=== PATIENT | female | born 1960 | race African-American/Black ===

== ENCOUNTER 2017-07-23 15:59 | Emergency (ER) | payer OTHER ==
[2017-07-23 16:05] VITALS: TEMP 98; BMI 25.7
--- NOTE | 2017-07-23 16:06 | PDOC ---
Rapid Medical Evaluation Time Seen by Provider: 07/23/17 16:00 Medical Evaluation: Allergies Allergy/AdvReac Type Severity Reaction Status Date / Time aspirin Allergy Verified 11/26/13 10:20 pseudoephedrine Allergy Verified 11/26/13 10:20 07/23/17 16:00 I have performed a brief in-person evaluation of this patient. The patient presents with a chief complaint of: hx of HTN. Wilson headache today 8 /10 pain. MD Rich gave norvasc "in case" of high BP, BP at home 140/100, took norvasc at 2:40 pm before work, at work BP was 160/113, denies SOB or chest pain Pertinent physical exam findings: well appearing, BP 157/97 I have ordered the following: labs, EKG The patient will proceed to the ED for further evaluation. Discharge Disposition - Diagnosis Hypertension - Referrals - Patient Instructions - Post Discharge Activity
[2017-07-23 16:33] LABS: BASO % 0.6 % (0-2.0); EOS % 4.8 % (0-4.5); HEMATOCRIT 41.7 % (32.4-45.2); HEMOGLOBIN 13.6 GM/dL (10.7-15.3); LYMPH % 28.1 % (8-40); MCHC 32.7 g/dl (32.0-36.0); MEAN CELL VOLUME 88.8 fl (80-96); MEAN PLT VOLUME 8.9 fl (7.5-11.1); NEUT % 56.5 % (42.8-82.8); PLATELET COUNT 256 K/MM3 (134-434)
[2017-07-23 16:46] LABS: INR 1.02 (0.82-1.09); PROTHROMBIN TIME (PATIENT) 11.5 SEC (9.98-11.88)
[2017-07-23 16:59] LABS: ALBUMIN 3.9 g/dl (3.4-5.0); ANION GAP 7 (8-16); BLOOD UREA NITROGEN 15 mg/dL (7-18); CALCIUM 8.6 mg/dL (8.5-10.1); CHLORIDE 108 mmol/L (98-107); CO2 27 mmol/L (21-32); CREATININE 0.7 mg/dL (0.55-1.02); GLUCOSE,RANDOM 130 mg/dL (74-106); POTASSIUM 4.1 mmol/L (3.5-5.1); SGOT/AST 15 U/L (15-37); SGPT/ALT 21 U/L (12-78); SODIUM 142 mmol/L (136-145)
[2017-07-23 17:02] LABS: ALK PHOS 108 U/L (45-117); BILIRUBIN,TOTAL 0.4 mg/dL (0.2-1.0); TOT PROT 7.7 g/dl (6.4-8.2)
[2017-07-23] MEDS ORDERED: ACETAMINOPHEN 325 MG TABLET (FP) ONE (17:51)
--- NOTE | 2017-07-23 17:53 | PDOC ---
History of Present Illness - History of Present Illness Initial Comments: 07/23/17 18:04 Patient is a 57 F with PMHx of HTN, who presents today for high blood pressure. Patient states that she found out her cousin earlier this morning. She took her Norvasc medication and went to her job at the [employer]. She then had her blood pressure taken at work and measured 160/110. She denies taking any Tylenol or other medication for her headache. She denies chest pain, shortness of breath, visual changes, nausea, vomit, focal neuro deficits. <Mackenzie Gibbons - Last Filed: 07/23/17 18:04> <Antonette Thornton - Last Filed: 07/23/17 18:07> - General Chief Complaint: Blood Pressure Problem Stated Complaint: BLOOD PRESSURE PROBLEM Time Seen by Provider: 07/23/17 16:00 Past History <Mackenzie Gibbons - Last Filed: 07/23/17 18:04> - Past Medical History COPD: No HTN: Yes Hypercholesterolemia: Yes Other medical history: R.A - Surgical History Abdominal Surgery: Yes (STOMACH) - Suicide/Smoking/Psychosocial Hx Smoking Status: No Smoking History: Never smoked Have you smoked in the past 12 months: No Number of Cigarettes Smoked Daily: 0 Information on smoking cessation initiated: No Hx Alcohol Use: No Drug/Substance Use Hx: No Substance Use Type: None <Antonette Thornton - Last Filed: 07/23/17 18:07> - Past Medical History Allergies/Adverse Reactions: Allergies Allergy/AdvReac Type Severity Reaction Status Date / Time aspirin Allergy Verified 07/23/17 16:00 pseudoephedrine Allergy Verified 07/23/17 16:00 Home Medications: Ambulatory Orders Folic Acid - 1 mg PO DAILY 11/26/13 Lisinopril [Prinivil] 10 mg PO DAILY 11/26/13 Tramadol HCl 50 mg PO TID #20 tablet 11/26/13 Review of Systems - Review of Systems Comments:: 07/23/17 18:04 CONSTITUTIONAL: Absent: fever, no chills, no fatigue EYES: Absent: visual changes ENT: Absent: ear pain, no sore throat CARDIOVASCULAR: Absent: chest pain, no palpitations RESPIRATORY: Absent: cough, no SOB GI: Absent: abdominal pain, no nausea, no vomiting, no constipation, no diarrhea GENITOURINARY: Absent: dysuria, no frequency, no hematuria MUSCULOSKELETAL: Absent: back pain, no arthralgia, no myalgia SKIN: Absent: rash NEURO: Present: headache <ShaiMackenzie - Last Filed: 07/23/17 18:04> *Physical Exam - Vital Signs Last Vital Signs Temp Pulse Resp BP Pulse Ox 98.0 F 70 20 121/100 100 07/23/17 16:01 07/23/17 17:55 07/23/17 17:55 07/23/17 17:55 07/23/17 17:55 - Physical Exam Comments: 07/23/17 18:05 GENERAL: Well-appearing, well-nourished. No apparent distress. HEENT: Normocephalic, atraumatic. PERRL, EOM intact. CARDIOVASCULAR: Normal S1, S2. Regular rate and rhythm. PULMONARY: Clear to auscultation bilaterally. ABDOMEN: Soft, non-distended, non-tender. EXTREMITIES: Normal ROM in all four extremities. No gross deformities. SKIN: Warm, dry. No rash NEUROLOGICAL: No focal neurological deficits. <ShaiMackenzie - Last Filed: 07/23/17 18:04> - Vital Signs Last Vital Signs Temp Pulse Resp BP Pulse Ox 98.0 F 64 18 157/97 100 07/23/17 16:01 07/23/17 16:01 07/23/17 16:01 07/23/17 16:01 07/23/17 16:01 <Antonette Thornton - Last Filed: 07/23/17 18:07> ED Treatment Course - LABORATORY CBC & Chemistry Diagram: 07/23/17 16:21 07/23/17 16:22 - ADDITIONAL ORDERS Additional order review: Laboratory Results 07/23/17 07/23/17 07/23/17 16:22 16:22 16:21 PT with INR 11.50 INR 1.02 Sodium 142 Potassium 4.1 Chloride 108 H Carbon Dioxide 27 Anion Gap 7 L BUN 15 Creatinine 0.7 Creat Clearance w eGFR > 60 Random Glucose 130 H Calcium 8.6 Magnesium 2.2 Total Bilirubin 0.4 D AST 15 ALT 21 Alkaline Phosphatase 108 Creatine Kinase 229 H Creatine Kinase Index 0.8 CK-MB (CK-2) 2.001 Troponin I < 0.02 Total Protein 7.7 Albumin 3.9 07/23/17 16:21 RBC 4.70 MCV 88.8 MCHC 32.7 RDW 15.0 MPV 8.9 Neutrophils % 56.5 Lymphocytes % 28.1 Monocytes % 10.0 Eosinophils % 4.8 H Basophils % 0.6 - Medications Given in the ED: ED Medications Discontinued Medications Generic Name Dose Route Start Last Admin Trade Name Camilo PRN Reason Stop Dose Admin Acetaminophen 975 mg 07/23/17 17:55 07/23/17 17:56 Tylenol - PO 07/23/17 17:56 975 mg ONCE STA Administration <Mackenzie Gibbons - Last Filed: 07/23/17 18:04> - LABORATORY CBC & Chemistry Diagram: 07/23/17 16:21 07/23/17 16:22 - ADDITIONAL ORDERS Additional order review: Laboratory Results 07/23/17 07/23/17 07/23/17 16:22 16:22 16:21 PT with INR 11.50 INR 1.02 Sodium 142 Potassium 4.1 Chloride 108 H Carbon Dioxide 27 Anion Gap 7 L BUN 15 Creatinine 0.7 Creat Clearance w eGFR > 60 Random Glucose 130 H Calcium 8.6 Magnesium 2.2 Total Bilirubin 0.4 D AST 15 ALT 21 Alkaline Phosphatase 108 Creatine Kinase 229 H Creatine Kinase Index 0.8 CK-MB (CK-2) 2.001 Troponin I < 0.02 Total Protein 7.7 Albumin 3.9 07/23/17 16:21 RBC 4.70 MCV 88.8 MCHC 32.7 RDW 15.0 MPV 8.9 Neutrophils % 56.5 Lymphocytes % 28.1 Monocytes % 10.0 Eosinophils % 4.8 H Basophils % 0.6 <Antonette Thornton - Last Filed: 07/23/17 18:07> *DC/Admit/Observation/Transfer - Attestations Scribe Attestion: 07/23/17 18:05 Documentation prepared by Mackenzie Gibbons, acting as medical technician assistant for Antonette Thornton MD. <Mackenzie Gibbons - Last Filed: 07/23/17 18:04> <Antonette Thornton - Last Filed: 07/23/17 18:07> Diagnosis at time of Disposition: Hypertension Qualifiers: Hypertension type: essential hypertension Qualified Code(s): I10 - Essential ( primary) hypertension - Discharge Dispostion Disposition: HOME Condition at time of disposition: Stable - Referrals Referrals: Tequila Rich [Primary Care Provider] - - Patient Instructions Printed Discharge Instructions: DI for High Blood Pressure Additional Instructions: please followup with your doctor take tyelnol for headaches - Post Discharge Activity Forms/Work/School Notes: Back to Work
[2017-07-23] MEDS ORDERED: ACETAMINOPHEN 500 MG TABLET (FP) PO STA (17:55)
[2017-07-23 17:56] VITALS: BP 121/100; PULSE 70
== END 2017-07-23 18:13 | disposition home or self-care (01) ==
LOC: JER 15:59
DX: I10 Essential (primary) hypertension (principal); E78.00 Pure hypercholesterolemia, unspecified; M06.9 Rheumatoid arthritis, unspecified
CPT/HCPCS: 36415; 80053; 82550; 82553; 83735; 84484; 85025; 85610; 99281-25; 99282-25